=== PATIENT | male | born 1965 | race Caucasian/White ===

== ENCOUNTER 2017-11-20 09:02 | Emergency (ER) | payer MEDICARE, MEDICAID ==
--- NOTE | 2017-11-20 09:25 | Emergency Department Record ---
History of Present Illness - General Chief complaint: Rash Stated complaint: RASH ON FACE Time Seen by Provider: 11/20/17 09:12 Source: Patient Mode of Arrival: Ambulatory Limitations: No limitations - History of Present Illness Initial comments: pt has had a rash on the face for a few days that is getting worse. complaint: Insect bite/sting, Rash -: Days(s) Location: Face Severity: Mild Quality: Burning Consistency: Getting worse Improves with: None Worsens with: None Context: None Associated symptoms: Denies other symptoms Treatments Prior to Arrival: None - Related Data Previous Rx's Medication Instructions Recorded Doxycycline Hyclate 100 mg PO BID #14 tab.dr 11/20/17 Mupirocin 1 gm TP BID #30 oin.pf.nataly 11/20/17 Allergies Allergy/AdvReac Type Severity Reaction Status Date / Time No Known Drug Allergies Allergy Verified 11/20/17 09:02 Travel Screening - Travel/Exposure Within Last 30 Days Have you traveled within the last 30 days?: No Review of Systems Reviewed: No additional complaints except as noted below Constitutional: Reports: As per HPI. Denies: Chills, Fever, Malaise, Night sweats, Weakness, Weight change Eyes: Reports: As per HPI. Denies: Eye discharge, Eye pain, Photophobia, Vision change ENT: Reports: As per HPI. Denies: Congestion, Dental pain, Ear pain, Epistaxis , Hearing loss, Throat pain Respiratory: Reports: As per HPI. Denies: Cough, Dyspnea, Hemoptysis, Stridor, Wheezes Cardiovascular: Reports: As per HPI. Denies: Arrhythmia, Chest pain, Dyspnea on exertion, Edema, Murmurs, Orthopnea, Palpitations, Paroxysmal nocturnal dyspnea, Rheumatic Fever, Syncope Endocrine: Reports: As per HPI. Denies: Fatigue, Heat or cold intolerance, Polydipsia, Polyuria Gastrointestinal: Reports: As per HPI. Denies: Abdominal pain, Constipation, Diarrhea, Hematemesis, Hematochezia, Melena, Nausea, Vomiting Genitourinary: Reports: As per HPI. Denies: Dysuria, Frequency, Hematuria, Incontinence, Retention, Testicular pain, Testicular mass, Urgency Musculoskeletal: Reports: As per HPI. Denies: Arthralgia, Back pain, Gout, Joint swelling, Myalgia, Neck pain Skin: Reports: As per HPI. Denies: Bruising, Change in color, Change in hair/ nails, Lesions, Pruritus, Rash Neurological: Reports: As per HPI. Denies: Abnormal gait, Confusion, Headache, Numbness, Paresthesias, Seizure, Tingling, Tremors, Vertigo, Weakness Psychiatric: Reports: As per HPI. Denies: Anxiety, Auditory hallucinations, Depression, Homicidal thoughts, Suicidal thoughts, Visual hallucinations Hematological/Lymphatic: Reports: As per HPI. Denies: Anemia, Blood Clots, Easy bleeding, Easy bruising, Swollen glands Past Medical History - SOCIAL HISTORY Smoking Status: Former smoker Alcohol Use: None Drug Use: None - RESPIRATORY Hx Respiratory Disorders: No - CARDIOVASCULAR Hx Cardio Disorders: Yes Hx Hypertension: Yes Comment:: high cholesterol - NEURO Hx Neuro Disorders: No - GI Hx GI Disorders: Yes Hx Reflux: Yes Hx Liver Disease: Yes (fatty liver) - Hx Genitourinary Disorders: No - ENDOCRINE Hx Endocrine Disorders: Yes Hx Diabetes: Yes - MUSCULOSKELETAL Hx Musculoskeletal Disorders: Yes Hx Gout: Yes - PSYCH Hx Psych Problems: No - HEMATOLOGY/ONCOLOGY Hx Hematology/Oncology Disorders: No Family Medical History Any Significant Family History?: No Physical Exam - General General Appearance: Alert, Oriented x3, Cooperative, Mild distress - Head Head exam: Normal inspection - Eye Eye exam: Normal appearance, PERRL, EOMI Pupils: Normal accommodation - ENT ENT exam: Normal exam, Mucous membranes moist, Normal external ear exam, Normal orophraynx, TM's normal bilaterally Ear exam: Normal external inspection. negative: External canal tenderness Nasal Exam: Normal inspection. negative: Discharge, Sinus tenderness Mouth exam: Normal external inspection, Tongue normal Teeth exam: Normal inspection. negative: Dental caries Throat exam: Normal inspection. negative: Tonsillar erythema, Tonsillar exudate - Neck Neck exam: Tenderness. negative: Full ROM - Respiratory Respiratory exam: Normal lung sounds bilaterally. negative: Respiratory distress - Cardiovascular Cardiovascular Exam: Normal rhythm, Normal heart sounds, Tachycardia - GI/Abdominal GI/Abdominal exam: Soft, Normal bowel sounds. negative: Tenderness - Rectal Rectal exam: Deferred - exam: Deferred - Extremities Extremities exam: Normal inspection, Full ROM, Normal capillary refill. negative: Tenderness - Back Back exam: Reports: Normal inspection, Full ROM. Denies: Muscle spasm, Rash noted, Tenderness - Neurological Neurological exam: Alert, CN II-XII intact, Normal gait, Oriented X3 - Psychiatric Psychiatric exam: Normal affect, Normal mood - Skin Skin exam: Dry, Intact, Normal color, Rash, Warm Distribution of rash: Face Description of rash: Blisters, Crusting, Discharge, Erythematous, Swelling, Tenderness Course Vital Signs 11/20/17 09:09 Temperature 97.9 F Pulse Rate 111 H Respiratory 18 Rate Blood Pressure 170/126 Pulse Ox 99 Disposition Disposition: Discharge Clinical Impression: Impetigo, Folliculitis Disposition: Home, Self-Care Condition: (1) Good Instructions: Impetigo (ED), Folliculitis (ED) Additional Instructions: follow up with family doctor this week. return sooner if worse. avoid touching face. have blood pressure rechecked tomorrow and see family doctor regarding this Prescriptions: Doxycycline Hyclate 100 mg PO BID #14 tab. Mupirocin 1 gm TP BID #30 oin.pf.nataly Forms: Patient Portal Access Quality - Quality Measures Quality Measures: N/A - Blood Pressure Screening Does Patient Have Any of the Following: Active Dx of HTN Blood Pressure Classification: Hypertensive Reading Systolic Measurement: 170 Diastolic Measurement: 126 Screening for High Blood Pressure: Patient Exclusion, Hx of HTN [G9744]
== END 2017-11-20 09:53 | disposition home or self-care (01) ==
LOC: ER 09:02
DX: L01.02 Bockhart's impetigo (principal); I10 Essential (primary) hypertension; Z87.891 Personal history of nicotine dependence
CPT/HCPCS: 99282

== ENCOUNTER 2018-09-26 15:38 | Emergency (ER) | payer MEDICARE, MEDICAID ==
--- NOTE | 2018-09-26 16:13 | Emergency Department Record ---
History of Present Illness - General Chief Complaint: Dizziness Stated Complaint: DIZZY Time Seen by Provider: 09/26/18 15:57 Source: Patient Mode of Arrival: Ambulatory Limitations: No limitations - History of Present Illness Initial Comments: pt had chills and dizziness. he felt better after eating. he has had sores on his r foot. Complaint: Dizziness Onset/Timin -: Days(s) Timing: Unsure Description: Other History of Same: Yes History of Trauma: No Severity: Mild Improves With: Other Worsens With: Nothing - [place] Coma Scale Eye Response: (4) Open spontaneously Motor Response: (6) Obeys commands Verbal Response: (5) Oriented Rosio Total: 15 - Symptoms of Stroke Symptoms of stroke: Dizziness - Related Data Allergies Allergy/AdvReac Type Severity Reaction Status Date / Time No Known Drug Allergies Allergy Verified 09/26/18 15:51 Travel Screening - Travel/Exposure Within Last 30 Days Have you traveled within the last 30 days?: No - Travel/Exposure Within Last Year Have you traveled outside the [place] in the last year?: No - Additonal Travel Details Have you been exposed to anyone with a communicable illness?: No - Travel Symptoms Symptom Screening: None Review of Systems Reviewed: No additional complaints except as noted below Constitutional: Reports: As per HPI. Denies: Chills, Fever, Malaise, Night sweats, Weakness, Weight change Eyes: Reports: As per HPI. Denies: Eye discharge, Eye pain, Photophobia, Vision change ENT: Reports: As per HPI. Denies: Congestion, Dental pain, Ear pain, Epistaxis, Hearing loss, Throat pain Respiratory: Reports: As per HPI. Denies: Cough, Dyspnea, Hemoptysis, Stridor, Wheezes Cardiovascular: Reports: As per HPI. Denies: Arrhythmia, Chest pain, Dyspnea on exertion, Edema, Murmurs, Orthopnea, Palpitations, Paroxysmal nocturnal dyspnea, Rheumatic Fever, Syncope Endocrine: Reports: As per HPI. Denies: Fatigue, Heat or cold intolerance, Polydipsia, Polyuria Gastrointestinal: Reports: As per HPI. Denies: Abdominal pain, Constipation, Diarrhea, Hematemesis, Hematochezia, Melena, Nausea, Vomiting Genitourinary: Reports: As per HPI. Denies: Dysuria, Frequency, Hematuria, Incontinence, Retention, Testicular pain, Testicular mass, Urgency Musculoskeletal: Reports: As per HPI. Denies: Arthralgia, Back pain, Gout, Joint swelling, Myalgia, Neck pain Skin: Reports: As per HPI. Denies: Bruising, Change in color, Change in hair/nails, Lesions, Pruritus, Rash Neurological: Reports: As per HPI. Denies: Abnormal gait, Confusion, Headache, Numbness, Paresthesias, Seizure, Tingling, Tremors, Vertigo, Weakness Psychiatric: Reports: As per HPI. Denies: Anxiety, Auditory hallucinations, Depression, Homicidal thoughts, Suicidal thoughts, Visual hallucinations Hematological/Lymphatic: Reports: As per HPI. Denies: Anemia, Blood Clots, Easy bleeding, Easy bruising, Swollen glands Past Medical History - SOCIAL HISTORY Smoking Status: Former smoker Alcohol Use: Occasional Drug Use: None - RESPIRATORY Hx Respiratory Disorders: No - CARDIOVASCULAR Hx Cardio Disorders: Yes Hx Hypertension: Yes Comment:: high cholesterol - NEURO Hx Neuro Disorders: No - GI Hx GI Disorders: Yes Hx Reflux: Yes Hx Liver Disease: Yes (fatty liver) - Hx Genitourinary Disorders: No - ENDOCRINE Hx Endocrine Disorders: Yes Hx Diabetes: Yes - MUSCULOSKELETAL Hx Musculoskeletal Disorders: Yes Hx Gout: Yes - PSYCH Hx Psych Problems: No - HEMATOLOGY/ONCOLOGY Hx Hematology/Oncology Disorders: No Family Medical History Any Significant Family History?: No Physical Exam - General General Appearance: Alert, Oriented x3, Cooperative, Mild distress - Head Head exam: Normal inspection - Eye Eye exam: Normal appearance, PERRL, EOMI Pupils: Normal accommodation - ENT ENT exam: Normal exam, Mucous membranes moist, Normal external ear exam, Normal orophraynx Ear exam: Normal external inspection. negative: External canal tenderness Nasal Exam: Normal inspection. negative: Discharge, Sinus tenderness Mouth exam: Normal external inspection, Tongue normal Teeth exam: Normal inspection. negative: Dental caries Throat exam: Normal inspection. negative: Tonsillar erythema, Tonsillar exudate - Neck Neck exam: Normal inspection, Full ROM. negative: Tenderness - Respiratory Respiratory exam: Normal lung sounds bilaterally. negative: Respiratory distress - Cardiovascular Cardiovascular Exam: Normal rhythm, Normal heart sounds, Tachycardia - GI/Abdominal GI/Abdominal exam: Soft, Normal bowel sounds. negative: Tenderness - Rectal Rectal exam: Deferred - exam: Deferred - Extremities Extremities exam: Normal inspection, Full ROM, Normal capillary refill. negative: Tenderness Image of Feet: 1 - erythema,swelling, blackened skin - Back Back exam: Reports: Normal inspection, Full ROM. Denies: Muscle spasm, Rash noted, Tenderness - Neurological Neurological exam: Alert, CN II-XII intact, Normal gait, Oriented X3 - Psychiatric Psychiatric exam: Normal affect, Normal mood - Skin Skin exam: Dry, Intact, Normal color, Warm Course Vital Signs 09/26/18 15:45 Temperature 99.1 F Pulse Rate [ 142 H Pulse Ox Probe] Respiratory 18 Rate Blood Pressure 166/100 [Left Arm] Pulse Ox 99 - Reevaluation(s) Reevaluation #1: 09/26/18 18:26 xrays are neg for osteomylitis. pt d/w dr sanders who asked me to transfer and with dr lowery. Medical Decision Making - Lab Data Result diagrams: 09/26/18 16:30 09/26/18 16:30 Disposition Disposition: Transfer Clinical Impression: Diabetic foot infection Sepsis Qualifiers: Sepsis type: sepsis due to unspecified organism Sepsis acute organ dysfunction status: without acute organ dysfunction Qualified Code(s): A41.9 - Sepsis, unspecified organism Hyperglycemia due to type 2 diabetes mellitus Qualifiers: Diabetes mellitus retirement insulin use: without terminologist use Qualified Code(s): E11.65 - Type 2 diabetes mellitus with hyperglycemia Disposition: Still a Patient at [facility] Transfer To: [facility] Reason For Transfer: needs specialists Accepting Physician: dr lowery Time Discussed w/Accepting Physician: 17:45 Forms: Patient Portal Access Quality - Quality Measures Quality Measures: N/A - Blood Pressure Screening Does Patient Have Any of the Following: Active Dx of HTN Blood Pressure Classification: Hypertensive Reading Systolic Measurement: 166 Diastolic Measurement: 100 Screening for High Blood Pressure: Patient Exclusion, Hx of HTN [G9744]
[2018-09-26 16:39] LABS: ABSOLUTE NEUTROPHIL COUNT 16.33; HEMOGLOBIN 12.2 gm/dl (14.0-18.0); MEAN CELL VOLUME 88.2 fl (81-97); MEAN CORPUSCULAR HEMOGLOBIN 30.7 pg (27-33); MEAN CORPUSCULAR HGB CONC 34.9 g/dl (32-36); MEAN PLATELET VOLUME 9.3 fl (7.4-10.4); PLATELET COUNT 433 K/uL (130-400); RED BLOOD COUNT 3.97 M/uL (4.40-5.70); RED CELL DISTRIBUTION WIDTH 12.3 % (11.5-14.5); WHITE BLOOD COUNT W/O DIFF 19.7 K/uL (4.2-12.2)
[2018-09-26 16:47] LABS: PLATELET ESTIMATE NORMAL (NORMAL)
[2018-09-26 16:49] LABS: INR 1.1; PROTHROMBIN TIME (PATIENT) 11.6 SECONDS (9.5-12.1)
[2018-09-26 16:52] LABS: BLOOD UREA NITROGEN 12 mg/dL (6-20); CREATININE 0.8 mg/dL (0.7-1.2); EST GLOMERULAR FILTRATION RATE > 60 mL/min
[2018-09-26 16:53] LABS: TOTAL PROTEIN 7.1 g/dL (6.6-8.7)
[2018-09-26 16:57] LABS: ALBUMIN 3.5 g/dL (4.0-5.0); ALKALINE PHOSPHATASE 138 U/L (40-129); ALT/SGPT 10 U/L (<41); AST/SGOT 10 U/L (10.0-50.0); CREATINE PHOSPHOKINASE 67 U/L (39-308)
[2018-09-26 17:00] LABS: CKMB 3.7 ng/mL (<6.73)
[2018-09-26 17:16] LABS: GLUCOSE,RANDOM 495 mg/dL (74-109)
[2018-09-26] MEDS: HUMULIN R 100 UNIT/ML VIAL SQ ONE (17:36)
[2018-09-26] MEDS ORDERED: 0.9 % SODIUM CHLORIDE 1,000 ML BAG IV ONE (17:41)
[2018-09-26] MEDS: CEFTRIAXONE 1GM/50ML BAG 1 GM/50 ML BAG IVPB ONE (17:44)
[2018-09-26] MEDS: 0.9 % SODIUM CHLORIDE 1,000 ML BAG IV ONE (17:44)
[2018-09-26 17:47] LABS: LACTIC ACID 2.3 mmol/L (0.5-2.2)
[2018-09-26] MEDS: ACETAMINOPHEN 500 MG TABLET PO ONE (17:51)
[2018-09-26] MEDS: PIPERACILLIN SODIUM/TAZOBACTAM 4.5 GM in 0.9 % SODIUM CHLORIDE 100ML 100 ML IVPB ONE (18:02)
[2018-09-26 19:23] LABS: URINE APPEARANCE SL CLOUDY; URINE BILIRUBIN NEGATIVE (NEGATIVE); URINE BLOOD SMALL (NEGATIVE); URINE COLOR YELLOW; URINE KETONE NEGATIVE (NEGATIVE); URINE LEUKOCYTE ESTERASE NEGATIVE (NEGATIVE); URINE NITRITE NEGATIVE (NEGATIVE); URINE UROBILINOGEN 0.2 E.U./dL (0.20 - 1.00)
[2018-09-26 19:29] LABS: URINE GLUCOSE (UA) >=1000 mg/dL (NEGATIVE)
[2018-09-26 19:39] LABS: URINE EPITHELIAL CELLS 0 - 2 (FEW); URINE RBC 0 - 2 (NONE SEEN); URINE WBC NONE SEEN (0-2/hpf)
[2018-09-26 19:40] LABS: URINE BACTERIA NONE SEEN
--- NOTE | 2018-09-27 19:58 | RADIOLOGY REPORT ---
EXAM: CHEST 2 VIEWS HISTORY: LOW-GRADE FEVER. TECHNIQUE: Chest x-ray, two views. COMPARISON: None. FINDINGS: The heart is not enlarged and there is no mediastinal mass. No acute infiltrate or vascular congestion identified. IMPRESSION: NO ACUTE CARDIAC OR PULMONARY ABNORMALITY. JOB NUMBER: [id number] [facility]TDD
--- NOTE | 2018-09-27 20:01 | RADIOLOGY REPORT ---
EXAM: FOOT, RIGHT 3 VIEWS HISTORY: FOOT ULCERS. TECHNIQUE: Three views right foot. COMPARISON: None. FINDINGS: Moderate arthritic changes in the first metatarsophalangeal joint. Metatarsophalangeal joints otherwise unremarkable. Tarsometatarsal joints and tarsal joint spaces are fairly well maintained. There are plantar and dorsal calcaneal spurs. Chronic-appearing calcifications are seen along the plantar aspect of the foot. There are vascular calcifications. Interphalangeal joints spaces are fairly well maintained. No destructive or erosive change. IMPRESSION: 1. MODERATE ARTHRITIC CHANGES IN THE FIRST METATARSOPHALANGEAL JOINT. 2. VASCULAR CALCIFICATIONS. 3. CALCANEAL SPURS. 4. NO FRACTURE OR ACUTE OSSEOUS ABNORMALITY. NO DESTRUCTIVE PROCESS SEEN. JOB NUMBER: [id number] [facility]
== END 2018-09-26 21:03 | disposition still patient (30) ==
LOC: ER 15:38
DX: A41.9 Sepsis, unspecified organism (principal); E11.628 Type 2 diabetes mellitus with other skin complications; L08.9 Local infection of the skin and subcutaneous tissue, unspecified; R50.81 Fever presenting with conditions classified elsewhere; R42 Dizziness and giddiness; I10 Essential (primary) hypertension; F17.210 Nicotine dependence, cigarettes, uncomplicated; Z79.4 Long term (current) use of insulin
CPT/HCPCS: 71046; 80053; 81001; 82009; 82550; 82553; 82800; 83605; 85027; 85610; 93005; 93010; 96361; 96365; 96366; 96368; 96372; 99285; J0696; J2543

== ENCOUNTER 2019-04-03 14:04 | Emergency (ER) | payer MEDICARE ==
[2019-04-03] MEDS ORDERED: EPINEPHRINE HCL 0.1 MG/ML 10ML SYR IVP ONE ×4 (14:09→14:25)
[2019-04-03 14:29] LABS: HEMATOCRIT 31.3 % (42.0-52.0); HEMOGLOBIN 9.4 gm/dl (14.0-18.0); MEAN CELL VOLUME 83.9 fl (81-97); MEAN CORPUSCULAR HEMOGLOBIN 25.2 pg (27-33); MEAN PLATELET VOLUME 9.5 fl (7.4-10.4); RED BLOOD COUNT 3.73 M/uL (4.40-5.70); RED CELL DISTRIBUTION WIDTH 16.6 % (11.5-14.5); WHITE BLOOD COUNT W/O DIFF 15.2 K/uL (4.2-12.2)
--- NOTE | 2019-04-03 14:33 | Emergency Department Record ---
History of Present Illness - General Chief Complaint: Code Adult Stated Complaint: FULL ARREST Time Seen by Provider: 04/03/19 14:25 Source: Family, EMS Mode of Arrival: EMS Limitations: Altered mental status - History of Present Illness Initial Comments: The patient is here by EMS due to collapsing at home and hour ago. He has a hx of DM and tobacco use and has not felt well recently. The patient was first found pulseless by first responders and their AED did not fire due to the patient being in asystole. CPR was performed and EMS did arrive and again found the patient to be pulseless in asystole. The patient then did have a L leg IO placed and was intubated with the IGEL. EMS did briefly get pulseless back after 2 rounds of EPI and then did loose them about 10 minutes prior to presenting here. At this time the patient is pulseless with fixed and dilated pupils and is not making any agonal breaths. MD Complaint: Collapsed during rest Onset/Timin -: Hour(s) - Related Data Allergies Allergy/AdvReac Type Severity Reaction Status Date / Time No Known Drug Allergies Allergy Unverified 01/13/19 09:55 Review of Systems ROS unobtainable: Due to endotracheal tube Past Medical History - SOCIAL HISTORY Smoking Status: Former smoker Drug Use: None - RESPIRATORY Hx Respiratory Disorders: No - CARDIOVASCULAR Hx Cardio Disorders: Yes Hx Hypertension: Yes Comment:: high cholesterol - NEURO Hx Neuro Disorders: No - GI Hx GI Disorders: Yes Hx Reflux: Yes Hx Liver Disease: Yes (fatty liver) - Hx Genitourinary Disorders: No - ENDOCRINE Hx Endocrine Disorders: Yes Hx Diabetes: Yes - MUSCULOSKELETAL Hx Musculoskeletal Disorders: Yes Hx Gout: Yes - PSYCH Hx Psych Problems: No - HEMATOLOGY/ONCOLOGY Hx Hematology/Oncology Disorders: No Physical Exam - General General Appearance: Severe distress Limitations: Physical limitation - Head Head exam: Atraumatic, Normocephalic - Eye Eye exam: negative: PERRL (The pupils are fixed and dilated.) - Neck Neck exam: Normal inspection, Full ROM. negative: Tenderness - Respiratory Respiratory exam: Normal lung sounds bilaterally. negative: Respiratory distress, Rhonchi, Stridor, Wheezes - Cardiovascular Cardiovascular Exam: Other (No Heart sounds are found on exam.) - GI/Abdominal GI/Abdominal exam: Soft, Normal bowel sounds. negative: Tenderness - Neurological Neurological exam: Other (The patient has a GCS of 3.) Course - Reevaluation(s) Reevaluation #1: The patient did have clear breath sounds on exam and continued to be pulseless. We did continue CPR for 2 more rounds of EPI and the patient remained in Asystole. We did do a bedside cardiac echo and the patient had no cardiac activity. We did terminate efforts at 2:17 pm. 04/03/19 14:33 Reevaluation #2: I did inform the family of the events and did contact the ME. 04/03/19 14:36 Medical Decision Making - Lab Data Result diagrams: 04/03/19 14:10 04/03/19 14:10 Disposition Disposition: Other Clinical Impression: Cardiac arrest Forms: Patient Portal Access Time of Disposition: 15:12 Quality - Quality Measures Quality Measures: N/A - Blood Pressure Screening View Details: Yes Does Patient Have Any of the Following: Active Dx of HTN Systolic Measurement: ~ Screening for High Blood Pressure: Patient Exclusion, Hx of HTN [G9744]
[2019-04-03 14:42] LABS: ALB/GLOB RATIO 0.9 (1.1-1.8); ALBUMIN 2.6 g/dL (4.0-5.0); BILIRUBIN,TOTAL 0.2 mg/dL (0.2-1.0); CREATININE 1.4 mg/dL (0.7-1.2); TOTAL PROTEIN 5.5 g/dL (6.6-8.7)
[2019-04-03 14:51] LABS: PLATELET COUNT 77 K/uL (130-400); PLATELET ESTIMATE DECREASED (NORMAL)
[2019-04-03 14:53] LABS: ANISOCYTOSIS 1+
== END 2019-04-03 16:13 | disposition expired ==
LOC: ER 14:04
DX: I46.9 Cardiac arrest, cause unspecified (principal); I10 Essential (primary) hypertension; E11.9 Type 2 diabetes mellitus without complications; Z87.891 Personal history of nicotine dependence
CPT/HCPCS: 80053; 84484; 85027; 92950; 96374; 99285